=== PATIENT | male | born 1960 | race Caucasian/White ===

== ENCOUNTER 2017-07-02 12:01 | Emergency (ER) | payer MEDICARE ==
[2017-07-02 12:01] VITALS: PULSE 77
[2017-07-02 12:08] VITALS: BP 127/77; PULSE 89; RESP 18; O2SAT 100
--- NOTE | 2017-07-02 13:23 | ED PDOC ---
Upper Extremity Pain/Injury Time Seen by Provider: 07/02/17 12:29 Chief Complaint (Nursing): Upper Extremity Problem/Injury Chief Complaint (Provider): Left shoulder pain History Per: Patient History/Exam Limitations: no limitations Onset/Duration Of Symptoms: Days (x 3-4 weeks) Current Symptoms Are (Timing): Still Present Additional Complaint(s): Dandre is a 57 y/o right hand dominant male with a past medical history of CAD and HTN, presenting to the ED for evaluation of left shoulder pain x 1 month. Denies any associated injury, trauma, or heavy lifting. 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 He is able to lift his arm and pain worsens when bringing it down. He tried taking Tylenol, Ibuprofen, and Percocet without relief. Denies fever, chest pain, and neck pain. PMD: A Michael Past Medical History Reviewed: Historical Data, Nursing Documentation, Vital Signs Vital Signs: Last Vital Signs Temp Pulse 89 07/02/17 12:06 Resp 18 07/02/17 12:06 BP 127/77 07/02/17 12:06 Pulse Ox 100 07/02/17 12:06 - Medical History PMH: CAD, Cardia Arrhythmia, CHF, CVA, HTN, Hypercholesterolemia - Surgical History Surgical History: Appendectomy, Pacemaker - Family History Family History: States: Unknown Family Hx, Hypertension - Living Arrangements Living Arrangements: With Family - Social History Current smoker - smoking cessation education provided: Yes Alcohol: None Drugs: Denies - Immunization History Hx Tetanus Toxoid Vaccination: Yes (1 year ago) - Home Medications Home Medications: Ambulatory Orders Medication Instructions Recorded tiZANidine [Zanaflex] 4 mg PO Q8H PRN #20 tab 01/20/16 traMADol [Ultram] 50 mg PO TID PRN #15 tab 01/20/16 Aspirin [Ecotrin] 81 mg PO DAILY 04/03/16 Carvedilol [Coreg] 6.25 mg PO DAILY 04/03/16 Clopidogrel [Plavix] 75 mg PO DAILY 04/03/16 Digoxin [Digitek] 125 mcg PO DAILY 04/03/16 Enalapril Maleate [Vasotec] 10 mg PO DAILY 04/03/16 Ibuprofen [Motrin Tab] 800 mg PO Q6H PRN 04/03/16 Simvastatin [Zocor] 20 mg PO DAILY 04/03/16 Zolpidem [Ambien] 10 mg PO HS 04/03/16 Meclizine [Antivert] 12.5 mg PO TID #90 tab 04/05/16 Metaxalone [Skelaxin] 800 mg PO TID PRN #20 tablet 07/02/17 traMADol [Ultram] 50 mg PO TID PRN #20 tab 07/02/17 - Allergies Allergies/Adverse Reactions: Allergies Allergy/AdvReac Type Severity Reaction Status Date / Time No Known Allergies Allergy Verified 10/18/15 16:54 Review of Systems ROS Statement: Except As Marked, All Systems Reviewed And Found Negative Constitutional: Negative for: Fever, Sweats, Weakness Cardiovascular: Negative for: Chest Pain Respiratory: Negative for: Shortness of Breath Musculoskeletal: Positive for: Shoulder Pain (Left, x 1 month). Negative for: Neck Pain Neurological: Negative for: Numbness, Headache, Dizziness Physical Exam - Reviewed Nursing Documentation Reviewed: Yes Vital Signs Reviewed: Yes - Physical Exam Appears: Positive for: Well, Non-toxic, No Acute Distress Head Exam: Positive for: ATRAUMATIC, NORMAL INSPECTION, NORMOCEPHALIC Skin: Positive for: Normal Color. Negative for: Rash Eye Exam: Positive for: Normal appearance Neck: Positive for: Painless ROM. Negative for: Pain On Movement Of Neck Cardiovascular/Chest: Positive for: Regular Rate, Rhythm Respiratory: Positive for: Normal Breath Sounds Back: Negative for: Vertebral Tenderness Extremity: Positive for: Normal ROM (full ROM of left shoulder with pain, strong left hand medical technologist), Tenderness (Diffuse tenderness to the anterior left shoulder). Negative for: Swelling Neurologic/Psych: Positive for: Alert, Oriented - ECG O2 Sat by Pulse Oximetry: 100 (RA) Pulse Ox Interpretation: Normal - Other Rad Left shoulder x-ray X-Ray: Interpreted by Me, Viewed By Me X-Ray Interpretation: no fx, no dis Medical Decision Making Medical Decision Makin57 year old with left shoulder pain for 1 month Time: 13:31 Initial Plan: --Ordered X-Ray Left Shoulder --Toradol injection IM --Flexeril PO --Tramadol PO Patient is aware of x-ray results, all questions answered. He feels better after meds given. Patient given rx tramadol and skelaxin and he was referred to ortho oncology transplant network manager for follow up. Sling was declined. Scribe Attestation: Documented by Chelsea Silvestre, acting as a scribe for Nitza Quintero PA-C Provider Scribe Attestation: All medical record entries made by the Scribe were at my direction and personally dictated by me. I have reviewed the chart and agree that the record accurately reflects my personal performance of the history, physical exam, medical decision making, and the department course for this patient. I have also personally directed, reviewed, and agree with the discharge instructions and disposition. Disposition - Clinical Impression Clinical Impression: Shoulder pain - Patient ED Disposition Is Patient to be Admitted: No Counseled Patient/Family Regarding: Studies Performed, Diagnosis, Need For Followup, Rx Given - Disposition Referrals: Gabriel Michelle MD [Staff Provider] - Disposition: Routine/Home Disposition Time: 14:23 Condition: STABLE Additional Instructions: Ice and rest affected area. Take rx meds as directed as needed for pain. Follow up [place] with orthopedist. Prescriptions: Metaxalone [Skelaxin] 800 mg PO TID PRN #20 tablet PRN Reason: Muscle Pain traMADol [Ultram] 50 mg PO TID PRN #20 tab PRN Reason: Pain, Moderate (4-7) Instructions: Shoulder Pain (ED), Arthralgia (ED) Forms: [employer] (Romanian)
--- NOTE | 2017-07-02 14:30 | RAD ---
PROCEDURE: Radiographs of the Left Shoulder HISTORY: Pain for 1 month COMPARISON: No prior. FINDINGS: BONES: Bone alignment and mineralization are normal. There is no acute displaced fracture or bone destruction. JOINTS: Normal. Glenohumeral and acromioclavicular joints preserved. No osteoarthritis. SOFT TISSUES: Normal. OTHER FINDINGS: None. IMPRESSION: No acute fracture or dislocation.
== END 2017-07-02 15:03 | disposition home or self-care (01) ==
LOC: H.ER 12:01
DX: M25.512 Pain in left shoulder (principal); I10 Essential (primary) hypertension; I25.10 Atherosclerotic heart disease of native coronary artery without angina pectoris
CPT/HCPCS: 73030; 96372; 99282; J1885